=== PATIENT | male | born 1990 | race Caucasian/White ===

== ENCOUNTER 2018-03-06 13:55 | Emergency (ER) | payer BC ==
[2018-03-06 14:09] VITALS: BP 133/88; PULSE 98; TEMP 99; BMI 26.5
--- NOTE | 2018-03-06 14:30 | PDOC ---
History of Present Illness - General History Source: Patient Exam Limitations: No Limitations - History of Present Illness Initial Comments: 03/06/18 14:46 The patient is a 27 year old male with no past medical history who presents to the ED with complaints of 3 days of sore throat. The patient was at his PCPs office on Tuesday where he was diagnosed with a sinus infection and strep throat. He was subsequently started on a course of antibiotics which he has been taking for three days. He was called by his PCP today and was informed his WBC came back elevated. He came to the ED for further evaluation. In the ED, the patient reports a mild headache as well as a pleuritic chest pressure, but denies any fevers, chills, diaphoresis, cough, shortness of breath, nausea, vomiting, diarrhea, or urinary symptoms. Denies any recent travel or periods of prolonged sitting. PCP: Dr. Gogo Sims Hx: Denies any illicit drug, alcohol, or tobacco use. <Kaitlynn Brasher - Last Filed: 03/06/18 14:46> <Geraldo Tyson - Last Filed: 03/06/18 15:45> - General Chief Complaint: Sore Throat Stated Complaint: HIGH WBC, SORE THROAT Time Seen by Provider: 03/06/18 14:30 Past History <Kaitlynn Brasher - Last Filed: 03/06/18 14:46> - Past Medical History COPD: No Other medical history: PT DENIES - Suicide/Smoking/Psychosocial Hx Smoking History: Never smoked Have you smoked in the past 12 months: No Hx Alcohol Use: No <Geraldo Tyson - Last Filed: 03/06/18 15:45> - Past Medical History Allergies/Adverse Reactions: Allergies Allergy/AdvReac Type Severity Reaction Status Date / Time No Known Allergies Allergy Verified 03/06/18 14:03 Home Medications: Ambulatory Orders Albuterol Sulfate [Proair Hfa] 8.5 gm IH ASDIR 03/06/18 Cefdinir [Omnicef -] 600 mg PO DAILY 03/06/18 Fluticasone Propionate [Flovent Diskus] 50 mcg IH ASDIR 03/06/18 Prednisone [Deltasone] 20 mg PO DAILY 03/06/18 Review of Systems - Review of Systems Able to Perform ROS?: Yes Comments:: 03/06/18 14:46 A complete review of 10 out of 10 review of systems is taken and is negative apart from what is previously mentioned below and in the HPI. All Other Systems: Reviewed and Negative <Kaitlynn Brasher - Last Filed: 03/06/18 14:46> *Physical Exam - Vital Signs Last Vital Signs Temp Pulse Resp BP Pulse Ox 99 F 98 H 18 133/88 100 03/06/18 13:55 03/06/18 13:55 03/06/18 13:55 03/06/18 13:55 03/06/18 13:55 - Physical Exam Comments: 03/06/18 14:47 Vitals: Triage Vital signs reviewed General Appearance: no acute distress, well nourished well developed, Head: Atraumatic, normocephalic Nose: Nares patent bilaterally;no nasal congestion Throat: Bilateral tonsillar exudates in the posterior oropharynx mucous membranes moist Neck: Supple;No Nuchal rigidity Chest Wall: Nontender Cardiac: Regular rate and rhythm, no murmurs, no rubs, no gallops Lungs: Clear to auscultation bilateral, good air movement bilaterally, Extremities: Full range of motion to all extremities, no cyanosis, clubbing, or edema Skin: Warm and dry, no rashes or lesions, no petechiae Neuro: AOX3 <Kaitlynn Brasher - Last Filed: 03/06/18 14:46> - Vital Signs Last Vital Signs Temp Pulse Resp BP Pulse Ox 99 F 98 H 18 133/88 100 03/06/18 13:55 03/06/18 13:55 03/06/18 13:55 03/06/18 13:55 03/06/18 13:55 <Geraldo Tyson - Last Filed: 03/06/18 15:45> ED Treatment Course - LABORATORY CBC & Chemistry Diagram: 03/06/18 14:45 03/06/18 14:45 <Geraldo Tyson - Last Filed: 03/06/18 15:45> Medical Decision Making - Medical Decision Making 03/06/18 14:49 The patient is a 27 year old male with no past medical history who presents to the ED with complaints of 3 days of sore throat. The patient was at his PCPs office on Tuesday where he was diagnosed with a sinus infection and strep throat. He was subsequently started on a course of antibiotics which he has been taking for three days. He was called by his PCP today and was informed his WBC came back elevated. He came to the ED for further evaluation. In the ED, the patient reports a mild headache as well as a pleuritic chest pressure, but denies any fevers, chills, diaphoresis, cough, shortness of breath, nausea, vomiting, diarrhea, or urinary symptoms. Denies any recent travel or periods of prolonged sitting. Plan: Blood work <Kaitlynn Brasher - Last Filed: 03/06/18 14:46> - Medical Decision Making Patient well-appearing no apparent distress white count now normal history examination consistent with treated strep pharyngitis patient advised to continue his antibiotics as prescribed Findings, need for follow-up and strict return instructions discussed with patient. <Geraldo Tyson - Last Filed: 03/06/18 15:45> *DC/Admit/Observation/Transfer - Attestations Scribe Attestion: 03/06/18 14:54 Documentation prepared by Kaitlynn Brasher, acting as medical review specialist for Geraldo Tyson MD. <Kaitlynn Brasher - Last Filed: 03/06/18 14:46> <Geraldo Tyson - Last Filed: 03/06/18 15:45> Diagnosis at time of Disposition: Strep pharyngitis - Discharge Dispostion Condition at time of disposition: Stable - Referrals Referrals: Brea Bowens [Primary Care Provider] - - Patient Instructions Printed Discharge Instructions: Strep Throat Additional Instructions: Continue take all antibiotics as prescribed. Follow-up with your doctor this week. Return here worsening symptoms or for any concerns. - Post Discharge Activity
[2018-03-06 15:00] LABS: EOS % 0.8 % (0-4.5); HEMATOCRIT 46.6 % (35.4-49); HEMOGLOBIN 16.5 GM/dl (11.7-16.9); LYMPH % 29.5 % (8-40); MCH 30.7 pg (25.7-33.7); MCHC 35.4 g/dl (32.0-35.9); MEAN CELL VOLUME 86.7 fl (80-96); MEAN PLT VOLUME 6.9 fl (7.5-11.1); NEUT % 59.7 % (42.8-82.8); PLATELET COUNT 451 K/MM3 (134-434); RBC 5.37 M/mm3 (4.00-5.60); RDW 11.9 % (11.9-15.9); WHITE BLOOD COUNT 11.1 K/mm3 (4.0-10.8)
[2018-03-06 15:18] LABS: ALBUMIN 4.1 g/dl (3.5-5.0); ALK PHOS 80 U/L (32-92); ANION GAP 7 (8-16); BILIRUBIN,TOTAL 0.4 mg/dl (0.2-1.0); BLOOD UREA NITROGEN 17 mg/dl (7-18); CALCIUM 9.3 mg/dl (8.4-10.2); CHLORIDE 103 mmol/L (98-107); CO2 27 mmol/L (22-28); CREATININE 0.9 mg/dl (0.6-1.3); GLUCOSE,RANDOM 96 mg/dl (74-106); SGOT/AST 25 U/L (10-42); SGPT/ALT 33 U/L (10-40); SODIUM 137 mmol/L (136-145); TOT PROT 7.2 g/dl (6.4-8.3)
== END 2018-03-06 16:00 | disposition home or self-care (01) ==
LOC: FER 13:55
DX: J02.0 Streptococcal pharyngitis (principal)
CPT/HCPCS: 36415; 80053; 85025; 87040; 99283-25

== ENCOUNTER 2020-12-03 21:19 | Emergency (ER) | payer BC, OTHER ==
[2020-12-03 21:29] VITALS: BMI 27.4
[2020-12-03] MEDS ORDERED: ONDANSETRON 4 MG/2 ML VIAL ONE ×2 (21:37→22:30)
[2020-12-03] MEDS ORDERED: SODIUM CHLORIDE 1,000 ML IV STA ×2 (21:38→22:27)
[2020-12-03] MEDS ORDERED: ONDANSETRON 4 MG/2 ML VIAL IVPUSH ONE ×2 (21:38→22:30)
[2020-12-03 21:59] LABS: BASO % 0.7 % (0-2.0); EOS % 0.5 % (0-4.5); HEMATOCRIT 47.9 % (35.4-49); HEMOGLOBIN 16.5 GM/dl (11.7-16.9); LYMPH % 21.5 % (8-40); MCH 29.8 pg (25.7-33.7); MCHC 34.4 g/dl (32.0-35.9); MEAN CELL VOLUME 86.6 fl (80-96); MEAN PLT VOLUME 6.9 fl (7.5-11.1); MONO % 6.3 % (3.8-10.2); PLATELET COUNT 236 K/MM3 (134-434); RBC 5.53 M/mm3 (4.00-5.60); RDW 12.4 % (11.9-15.9); WHITE BLOOD COUNT 12.5 K/mm3 (4.0-10.8)
[2020-12-03 22:07] LABS: ALBUMIN 4.2 g/dl (3.4-5.0); BILIRUBIN,TOTAL 0.8 mg/dl (0.2-1); CREATININE 0.9 mg/dl (0.55-1.3); POTASSIUM 3.7 mmol/L (3.5-5.1); TOT PROT 7.4 g/dl (6.4-8.2)
[2020-12-03 23:22] VITALS: BP 128/81; PULSE 83
[2020-12-03 23:25] VITALS: TEMP 97.6
== END 2020-12-03 23:32 | disposition home or self-care (01) ==
LOC: FER 21:19
PROC: 3E033NZ Introduction of Analgesics, Hypnotics, Sedatives into Peripheral Vein, Percutaneous Approach (ICD-10-PCS; principal; 2020-12-03)
PROC: 3E033GC Introduction of Other Therapeutic Substance into Peripheral Vein, Percutaneous Approach (ICD-10-PCS; 2020-12-03)
PROC: 3E0337Z Introduction of Electrolytic and Water Balance Substance into Peripheral Vein, Percutaneous Approach (ICD-10-PCS; 2020-12-03)
DX: K52.9 Noninfective gastroenteritis and colitis, unspecified (principal)
CPT/HCPCS: 36415; 80053; 85025; 96361; 96374; 96375; 99285-25